=== PATIENT | female | born 1980 | race Caucasian/White ===

== ENCOUNTER 2016-08-15 17:46 | Emergency (ER) | payer OTHER ==
[~2016-08-15] VITALS: Ht 157.5 cm; Wt 49.9 kg
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
[2016-08-15 20:10] VITALS: BP 123/72
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
== END 2016-08-15 20:14 | disposition home or self-care (01) ==
LOC: ER 17:46 → EDBD 17:46 → ER 20:14
DX: S09.8XXA Other specified injuries of head, initial encounter (principal); S16.1XXA Strain of muscle, fascia and tendon at neck level, initial encounter; S60.221A Contusion of right hand, initial encounter; Y08.89XA Assault by other specified means, initial encounter; Y93.89 Activity, other specified; Y99.8 Other external cause status; Y92.89 Other specified places as the place of occurrence of the external cause
CPT/HCPCS: 70450; 72125; 73130; 99284-25

== ENCOUNTER 2017-07-03 18:40 | Emergency (ER) | payer OTHER ==
[~2017-07-03] VITALS: Ht 162.6 cm; Wt 56.6 kg
[2017-07-03] MEDS ORDERED: IV NORMAL SALINE 1,000ML 1,000 ML IV ONE (19:45)
[2017-07-03 19:47] LABS: CLARITY,URINE CLEAR; COLOR,URINE STRAW
[2017-07-03 19:49] LABS: BACTERIA,URINE 0 /HPF (0-FEW); BILIRUBIN,URINE NEG (NEG); GLUCOSE,URINE NEG (NEG); NITRITE,URINE NEG (NEG); RBC,URINE RARE /HPF (0-2); UROBILINOGEN,URINE 0.2 mg/dL (0.2 mg/dL); WBC,URINE OCC /HPF (0-4)
[2017-07-03 19:50] LABS: SQUAMOUS EPITHELIAL CELL,UR FEW /LPF
[2017-07-03 21:00] VITALS: BP 114/64
--- NOTE | 2017-07-03 21:07 | RAD ---
Pelvic ultrasound dated 07/03/2017. No comparison available. Clinical data indication: Left pelvic pain. Rule out torsion. FINDINGS: Transabdominal and transvaginal imaging was performed. The uterus measures 8.5 x 4.4 x 3.3 cm. No focal uterine mass. Endometrial complex is normal in thickness for age measuring 6 mm. Right ovary measures 2.5 x 1.5 x 2.2 cm. Left ovary measures 2.2 x 1.5 x 1.3 cm. There is normal color Doppler flow to both ovaries. Simple cyst or dominant follicle at the right ovary measures 1.6 cm in size. Heterogeneous focus at the left ovary measuring up to 1.4 cm could represent resolving cyst or hemorrhagic cyst.. No significant free fluid. IMPRESSION: 1. No acute sonographic abnormality. 2. Possible hemorrhagic cyst or collapsing cyst at the left ovary. Electronically signed by: Martínez Gregory MD (07/03/2017 9:04 PM) [facility]
--- NOTE | 2017-07-04 00:51 | ED.ADGEN ---
Past History Past Medical History: Depression, Other Past Surgical History: No Surgical History Alcohol Use: None Drug Use: None Adult General HPI HPI Patient is a 37 year old female who presents with pelvic pain. Patient had sudden onset of left-sided pelvic pain about 2 hours prior to presentation. The pain has been nonradiating and constant since that time. Pain has been worsening. She denies prior history of similar symptoms. Her last menstrual period was 2 weeks ago. She denies irregular vaginal bleeding or discharge. She does not have urinary symptoms. No fever or chills. No nausea or vomiting. Review of Systems Review of Systems Constitutional: Denies fever or chills Eyes: Denies change in visual acuity, redness, or eye pain HENT: Denies nasal congestion or sore throat Respiratory: Denies cough or shortness of breath Cardiovascular: No additional information not addressed in HPI GI: Denies abdominal pain, nausea, vomiting, bloody stools or diarrhea : Denies dysuria or hematuria Musculoskeletal: Denies back pain or joint pain Integument: Denies rash or skin lesions Neurologic: Denies headache, focal weakness or sensory changes Endocrine: Denies polyuria or polydipsia All other systems were reviewed and found to be within normal limits, except as documented in this note. Current Medications Current Medications Current Medications Medications (Trade) Dose Ordered Sig/Ross Start Time Stop Time Status Last Admin Dose Admin Sodium Chloride 1,000 ml @ 1,000 mls/hr 1X ONCE 07/03/17 19:45 07/03/17 20:44 DC 07/03/17 20:52 1,000 MLS/HR Allergies Allergies Allergies Coded Allergies Type Severity Reaction Last Updated Verified No Known Drug Allergies 08/15/16 No Physical Exam Physical Exam Constitutional: Well developed, well nourished, no acute distress, non-toxic appearance. HENT: Normocephalic, atraumatic, bilateral external ears normal, oropharynx moist Neck: Normal range of motion, no tenderness Cardiovascular:Heart rate regular rhythm, no murmur Lungs & Thorax: Bilateral breath sounds clear to auscultation Abdomen: Bowel sounds normal, soft, no tenderness, no masses, no pulsatile masses. Mild tenderness to palpation over the left pelvic area but no abdominal pain. Skin: Warm, dry, no erythema, no rash. Back: No tenderness, no CVA tenderness Extremities: No edema Neurologic: Alert and oriented X 3, normal motor function Psychologic: Affect normal, judgement normal, mood normal. Current Patient Data Lab Results Laboratory Tests Test 07/03/17 18:08 07/03/17 18:58 POC Urine HCG, Qualitative hcg negative (Negative) Urine Collection Type Unknown Urine Color Straw Urine Clarity Clear Urine pH 7.0 Urine Specific [place] 1.010 Urine Protein Neg (NEG-TRACE) Urine Glucose (UA) Neg mg/dL (NEG) Urine Ketones (Stick) Neg mg/dL (NEG) Urine Blood Neg (NEG) Urine Nitrite Neg (NEG) Urine Bilirubin Neg (NEG) Urine Urobilinogen Dipstick 0.2 mg/dL (0.2 mg/dL) Urine Leukocyte Esterase Neg (NEG) Urine RBC Rare /HPF (0-2) Urine WBC Occ /HPF (0-4) Urine Squamous Epithelial Cells Few /LPF Urine Bacteria 0 /HPF (0-FEW) EKG EKG [] Radiology/Procedures Radiology/Procedures No acute findings on pelvic ultrasound. There are findings suspicious for ruptured hemorrhagic cyst on the left Course & Med Decision Making Course & Med Decision Making Pertinent Labs and Imaging studies reviewed. (See chart for details) Patient was seen and examined in the emergency department. She was offered pain medication but she chose not to take pain medications. Ultrasound of the pelvic area that was performed as her symptoms seemed most consistent with a cyst or torsion. There was no torsion on ultrasound. She did have some findings concerning for hemorrhagic cyst that had already ruptured. This is the same area , on the left, where her pain is. Plan is for discharge home. Return precautions are discussed and all the patient's questions are answered. She is explicitly instructed to come back to the ER for any new or worsening symptoms as other sources of pain such as appendicitis had not entirely been ruled out. She did not have a urinary tract infection today. She was not today. Final Impression Final Impression Ruptured hemorrhagic cyst Dragjamie Disclaimer Dragon Disclaimer This electronic medical record was generated, in whole or in part, using a voice recognition dictation system. HORACE ANDERSON DO July 04, 2017 00:51
== END 2017-07-03 21:25 | disposition home or self-care (01) ==
LOC: ER 18:40
DX: N83.202 Unspecified ovarian cyst, left side (principal)
CPT/HCPCS: 76856; 81001; 81025; 99285-25; J7030